=== PATIENT | male | born 1985 | race Caucasian/White ===

== ENCOUNTER 2020-11-06 00:15 | Inpatient (IN) | payer OTHER ==
--- NOTE | 2020-11-06 00:42 | ED ---
General Adult HPI - General Chief complaint: Psychiatric Symptoms Stated complaint: ETOH Time Seen by Provider: 11/06/20 00:35 Source: patient Mode of arrival: wheelchair Limitations: no limitations - History of Present Illness Initial comments: 's patient is a 35-year-old man who comes to the hospital with his mother to have evaluation after he had a number of seizures today. They report that he is a daily drinker. He was having falls recently and difficulty with walking, as well as paresthesias, so they tried to wean him from alcohol and he stopped drinking a between 24-48 hours ago. Over the course the past day he has had 4 seizures, consisting of loss consciousness and generalized tonic-clonic movements. The patient denies any injury related to seizure but he has had falls at home and has hit his head. He is denying pains currently. He is denying any focal neurologic symptoms but notes that he has had paresthesias to the bilateral arms and legs. Onset/Timin -: days(s) Severity scale (1-10): 0 Consistency: constant Improves with: none Worsens with: none Associated Symptoms: seizure, other (Paresthesias) Treatments Prior to Arrival: none - Related Data Allergies Allergy/AdvReac Type Severity Reaction Status Date / Time No Known Allergies Allergy Verified 11/06/20 00:22 Review of Systems ROS Statement: Those systems with pertinent positive or pertinent negative responses have been documented in the HPI. ROS Other: All systems not noted in ROS Statement are negative. Constitutional: Denies: fever, chills Eyes: Denies: vision change Respiratory: Denies: cough, dyspnea Cardiovascular: Denies: chest pain, palpitations, edema Gastrointestinal: Reports: vomiting. Denies: abdominal pain, nausea, diarrhea Genitourinary: Denies: dysuria, hematuria Musculoskeletal: Denies: back pain Skin: Denies: rash, lesions Neurological: Reports: numbness, confusion. Denies: headache, weakness Psychiatric: Reports: anxiety, auditory hallucinations, visual hallucinations. Denies: homicidal thoughts, suicidal thoughts Past Medical History Past Medical History: No Reported History History of Any Multi-Drug Resistant Organisms: None Reported Past Surgical History: Orthopedic Surgery Past Psychological History: Anxiety, Bipolar, Depression, Schizoaffective Disorder Smoking Status: Current every day smoker Past Alcohol Use History: Abuse, Daily, Heavy Past Drug Use History: Cocaine General Exam Limitations: no limitations General appearance: alert, in no apparent distress Head exam: Present: atraumatic, normocephalic Eye exam: Present: normal appearance. Absent: scleral icterus, conjunctival injection ENT exam: Present: normal oropharynx Neck exam: Present: normal inspection, full ROM Respiratory exam: Present: normal lung sounds bilaterally. Absent: respiratory distress, wheezes, rales, rhonchi, stridor Cardiovascular Exam: Present: regular rate, normal rhythm, normal heart sounds. Absent: systolic murmur, diastolic murmur, rubs, gallop GI/Abdominal exam: Present: soft. Absent: distended, tenderness, guarding, jason ound, rigid, pulsatile mass Extremities exam: Present: normal inspection, normal capillary refill. Absent: pedal edema, calf tenderness Back exam: Present: normal inspection, full ROM. Absent: CVA tenderness (R), CVA tenderness (L), vertebral tenderness Neurological exam: Present: alert, CN II-XII intact. Absent: oriented X3 (Patient is disoriented to date), motor sensory deficit Psychiatric exam: Present: other (Patient does appear to be responding to internal stimuli, and manifesting visual hallucinations). Absent: depressed, homicidal ideation, suicidal ideation Skin exam: Present: warm, dry, intact, normal color. Absent: rash Course Vital Signs 11/06/20 11/06/20 00:16 02:25 Temperature 98.8 F Pulse Rate 135 H 110 H Respiratory 16 16 Rate Blood Pressure 128/89 129/93 O2 Sat by Pulse 100 Oximetry EKG Findings - EKG Results: EKG: interpreted by ERMD, sinus rhythm, normal axis, normal QRS, normal ST/T EKG shows: tachycardia (Rate 117 bpm) Medical Decision Making - Lab Data Result diagrams: 11/06/20 00:59 11/06/20 00:59 Lab Results 11/06/20 11/06/20 Range/Units 00:59 00:59 WBC 7.8 (3.8-10.6) k/uL RBC 4.05 L (4.30-5.90) m/uL Hgb 13.3 (13.0-17.5) gm/dL Hct 40.0 (39.0-53.0) % MCV 98.8 (80.0-100.0) fL MCH 32.7 (25.0-35.0) pg MCHC 33.1 (31.0-37.0) g/dL RDW 16.4 H (11.5-15.5) % Plt Count 113 L (150-450) k/uL MPV 9.2 Neutrophils % 80 % Lymphocytes % 11 % Monocytes % 5 % Eosinophils % 3 % Basophils % 0 % Neutrophils # 6.2 (1.3-7.7) k/uL Lymphocytes # 0.8 L (1.0-4.8) k/uL Monocytes # 0.4 (0-1.0) k/uL Eosinophils # 0.2 (0-0.7) k/uL Basophils # 0.0 (0-0.2) k/uL Anisocytosis Slight Macrocytosis Slight Sodium 132 L (137-145) mmol/L Potassium 3.6 (3.5-5.1) mmol/L Chloride 97 L (98-107) mmol/L Carbon Dioxide 23 (22-30) mmol/L Anion Gap 12 mmol/L BUN 8 L (9-20) mg/dL Creatinine 0.69 (0.66-1.25) mg/dL Est GFR (CKD-EPI)AfAm >90 (>60 ml/min/1.73 sqM) Est GFR (CKD-EPI)NonAf >90 (>60 ml/min/1.73 sqM) Glucose 111 H (74-99) mg/dL Calcium 9.3 (8.4-10.2) mg/dL Total Bilirubin 1.3 (0.2-1.3) mg/dL AST 417 H (17-59) U/L ALT 114 H (4-49) U/L Alkaline Phosphatase 73 (38-126) U/L Total Protein 8.0 (6.3-8.2) g/dL Albumin 4.6 (3.5-5.0) g/dL Serum Alcohol <10 mg/dL Disposition Clinical Impression: Alcohol withdrawal delirium Disposition: ADMITTED IP TO THIS HOSP Condition: Serious Is patient prescribed a controlled substance at d/c from ED?: No Referrals: None,Stated [Primary Care Provider] - 1-2 days
[2020-11-06] MEDS ORDERED: SODIUM CHLORIDE 0.9% 500 ML 500 ML IV STA (00:49)
[2020-11-06] MEDS ORDERED: LORazepam 2 MG/ML INJ IV STA (00:53)
[2020-11-06 01:04] LABS: Anisocytosis Slight; Basophils % (A) 0 %; Eosinophils # (A) 0.2 k/uL (0-0.7); Eosinophils % (A) 3 %; HGB 13.3 gm/dL (13.0-17.5); Lymphocytes # (A) 0.8 k/uL (1.0-4.8); Lymphocytes % (A) 11 %; MCH 32.7 pg (25.0-35.0); MCHC 33.1 g/dL (31.0-37.0); MCV 98.8 fL (80.0-100.0); Macrocytosis Slight; Mean Platelet Volume 9.2; Monocytes # (A) 0.4 k/uL (0-1.0); Monocytes % (A) 5 %; Neutrophils # (A) 6.2 k/uL (1.3-7.7); Neutrophils % (A) 80 %; Platelet Count 113 k/uL (150-450); RBC 4.05 m/uL (4.30-5.90); RDW 16.4 % (11.5-15.5); WBC 7.8 k/uL (3.8-10.6)
[2020-11-06 01:15] LABS: ALT 114 U/L (4-49); AST 417 U/L (17-59); African American GFR (CKD) >90 (>60 ml/min/1.73 sqM); Albumin 4.6 g/dL (3.5-5.0); Alcohol <10 mg/dL; Alkaline Phosphatase 73 U/L (38-126); Anion Gap 12 mmol/L; Blood Urea Nitrogen 8 mg/dL (9-20); Calcium 9.3 mg/dL (8.4-10.2); Carbon Dioxide 23 mmol/L (22-30); Chloride 97 mmol/L (98-107); Glucose 111 mg/dL (74-99); Non-African American GFR(CKD) >90 (>60 ml/min/1.73 sqM); Potassium 3.6 mmol/L (3.5-5.1); Sodium 132 mmol/L (137-145); Total Bilirubin 1.3 mg/dL (0.2-1.3)
[2020-11-06] MEDS ORDERED: LORazepam 2 MG/ML INJ IV PRN (01:21)
--- NOTE | 2020-11-06 01:47 | CT ---
EXAM: CT Head Without Intravenous Contrast CLINICAL HISTORY: Seizure activity. TECHNIQUE: Axial computed tomography images of the head/brain without intravenous contrast. CTDI is 49.27 mGy and DLP is 1202.4 mGy-cm. This CT exam was performed using one or more of the following dose reduction techniques: automated exposure control, adjustment of the mA and/or kV according to patient size, and/or use of iterative reconstruction technique. COMPARISON: No relevant prior studies available. FINDINGS: Brain: Unremarkable. No acute intracranial hemorrhage, edema or abnormal mass-effect. Ventricles: Unremarkable. No ventriculomegaly. Bones/joints: Unremarkable. No acute fracture. Soft tissues: Unremarkable. Sinuses: Marked mucosal thickening with a small amount of fluid in the left maxillary sinus. Mastoid air cells: Unremarkable as visualized. No mastoid effusion. IMPRESSION: No acute or focal intracranial abnormalities.
[2020-11-06] MEDS ORDERED: LORazepam 2 MG/ML INJ IM STA ×2 (02:00→02:38)
[2020-11-06] MEDS ORDERED: NICOTINE 21MG/24HR PATCH TRANSDERM STA (02:01)
[2020-11-06] MEDS ORDERED: ONDANSETRON 4 MG/2 ML VIAL IVP PRN (03:21)
[2020-11-06] MEDS ORDERED: NALOXONE 0.4 MG/ML 1 ML VIAL IV PRN (03:21)
[2020-11-06] MEDS ORDERED: HEPARIN SODIUM,PORCINE 5,000 UNIT/ML 1 ML VIAL SQ STA (03:49)
--- NOTE | 2020-11-06 03:50 | P.HPIM ---
History of Present Illness H&P Date: 11/06/20 Patient is a 35-year-old male with a PMH of extensive EtOH abuse and EtOH withdrawal seizures was brought into the emergency room by his mother due to alcohol withdrawal with multiple seizures at home. The history is provided by the mother at the bedside since the patient was in active DTs during the interview. She notes that the patient has been drinking a fifth of vodka daily roughly for the last decade. She notes that he decided to quit cold turkey on the morning of 11/04/2020. He subsequently had 4 episodes of grand mal seizures at home yesterday. She notes that he began hallucinating and was very combative, at which time she decided to activate EMS. The patient underwent an extensive evaluation in the emergency room, with vitals upon presentation 128/89, pulse 135, SpO2 100% on room air, and temperature of 98.8. Laboratory evaluation was remarkable for a sodium of 132, chloride 97, BUN 8, creatinine 0.69, glucose 111, AST 417, ALT 114, platelet count 113, and serum alcohol less than 10. EKG revealed sinus tachycardia at [address] brain unremarkable. Review of Systems ROS unobtainable: due to mental status Past Medical History Past Medical History: No Reported History History of Any Multi-Drug Resistant Organisms: None Reported Past Surgical History: Orthopedic Surgery Past Psychological History: Anxiety, Bipolar, Depression, Schizoaffective Disorder Smoking Status: Current every day smoker Past Alcohol Use History: Abuse, Daily, Heavy Past Drug Use History: Cocaine Medications and Allergies Allergies Allergy/AdvReac Type Severity Reaction Status Date / Time No Known Allergies Allergy Verified 11/06/20 00:22 Physical Exam Vitals: Vital Signs Temp Pulse Resp BP Pulse Ox 11/06/20 02:25 110 H 16 129/93 11/06/20 00:16 98.8 F 135 H 16 128/89 100 Intake and Output 11/05/20 11/05/20 11/06/20 14:59 22:59 06:59 Other: Weight 74.843 kg General: Disheveled male, no distress, appears older than stated age, normal weight Derm: Tattoos throughout, no unusual rashes/lesions no unusual ecchymoses, warm, dry Head: atraumatic, normocephalic, symmetric Eyes: EOMI, anicteric sclera, pupils equal round reactive to light ENT: Nose and ears atraumatic Mouth: no lip lesion, mucus membranes dry Cardiovascular: Tachycardic, no murmur, positive posterior tibial pulse bilatera l, no edema, capillary refill less than 2 seconds Lungs: CTA bilateral, no rhonchi, no rales , no accessory muscle use Abdominal: soft, nontender to palpation, no guarding, no appreciable organomegaly Ext: no gross muscle atrophy, moving all extremities Neuro: Patient is somnolent, groans and open eyes to noxious stimuli, not following any commands Results CBC & Chem 7: 11/06/20 00:59 11/06/20 00:59 Labs: Abnormal Lab Results - Last 24 Hours (Table) 11/06/20 11/06/20 Range/Units 00:59 00:59 RBC 4.05 L (4.30-5.90) m/uL RDW 16.4 H (11.5-15.5) % Plt Count 113 L (150-450) k/uL Lymphocytes # 0.8 L (1.0-4.8) k/uL Sodium 132 L (137-145) mmol/L Chloride 97 L (98-107) mmol/L BUN 8 L (9-20) mg/dL Glucose 111 H (74-99) mg/dL AST 417 H (17-59) U/L ALT 114 H (4-49) U/L Assessment and Plan Plan: Delirium tremens -CIWA protocol -Aspiration, fall, seizure precautions -Thiamine, folate, multivitamin -Monitor electrolytes and replace them as needed -Continue with IV fluids Thrombocytopenia -Likely due to alcohol abuse -Monitor for now Abnormal LFTs -Likely due to ongoing EtOH abuse -Continue to monitor for now -Obtain coags to quantify need for glucocorticoids Hypochloremic hyponatremia -Likely due to poor oral intake -Continue with IV fluids and monitor for now DVT prophylaxis -Heparin subq The patient is admitted with an anticipated greater than 2 midnight stay for evaluation of DTs CODE STATUS: Full Code Discussed with: Patient Anticipated discharge date: 3-[address]: Home A total of 40 minutes was spent on the care of this complex patient more than 50% of the time was spent in counseling and care coordination.
[2020-11-06] MEDS: LORazepam 2 MG/ML INJ IV PRN ×6 (05:53→23:04)
[2020-11-06] MEDS: 0.9% NACL WITH KCL 20 MEQ/L 1,000 ML IV SCH ×3 (05:54→19:48)
[2020-11-06 06:08] LABS: Appearance,Urine Clear (Clear); Bilirubin,Urine Negative (Negative); Blood,Urine Negative (Negative); Color,Urine Yellow; Glucose,Urine (UA) Negative (Negative); Ketones,Urine Negative (Negative); Leukocyte Esterase,Urine Negative (Negative); Nitrite,Urine Negative (Negative); PH, Urine 6.5 (5.0-8.0); Protein,Urine 1+ (Negative); Specific Gravity,Urine 1.005 (1.001-1.035); WBC,Urine <1 /hpf (0-5)
[2020-11-06 06:17] LABS: Amphetamine Screen,Urine Not Detected (NotDetected); Barbiturate Screen,Urine Not Detected (NotDetected); Benzodiazepines Screen,Urine Detected (NotDetected); Cocaine Screen,Urine Not Detected (NotDetected); Methadone Screen, Urine Not Detected (NotDetected); Opiate Screen,Urine Not Detected (NotDetected); Oxycodone Screen, Urine Not Detected (NotDetected); Phencyclidine Screen,Urine Not Detected (NotDetected); Tricyclic Antidepressant,Urine Not Detected (NotDetected); Urn Cannabinoid Scrn Not Detected (NotDetected)
[2020-11-06] MEDS: THIAMINE 100 MG/ML 2 ML VIAL IM STA ×2 (06:59→07:03)
[2020-11-06 08:28] LABS: HCT 38.2 % (39.0-53.0); HGB 13.3 gm/dL (13.0-17.5); MCH 34.8 pg (25.0-35.0); MCHC 34.8 g/dL (31.0-37.0); MCV 99.9 fL (80.0-100.0); Macrocytosis Slight; Platelet Count 105 k/uL (150-450); RBC 3.82 m/uL (4.30-5.90); RDW 15.7 % (11.5-15.5); WBC 5.7 k/uL (3.8-10.6)
[2020-11-06 09:21] LABS: INR 1.07 (0.90-1.11); Prothrombin Time 11.5 sec (9.9-11.9)
[2020-11-06 10:20] LABS: Magnesium 1.8 mg/dL (1.5-2.4); Phosphorus 2.3 mg/dL (2.4-5.1)
[2020-11-06 13:17] LABS: African American GFR (CKD) 153.1 (60.0-200.0); Albumin 4.6 g/dL (3.80-4.90); Albumin/Globulin Ratio 1.84 (1.60-3.17); Anion Gap 14.1 mmol/L (4.00-12.00); BUN/Creat Ratio 11.67 Ratio (12.00-20.00); Carbon Dioxide 20.9 mmol/L (21.6-31.8); Globulin 2.5 g/dL (1.6-3.3); Non-African American GFR(CKD) 132.1 (60.0-200.0); Potassium 3.6 mmol/L (3.5-5.5); Total Protein 7.1 g/dL (6.2-8.2)
[2020-11-06] MEDS: THIAMINE 100 MG TAB PO SCH (16:29)
[2020-11-06] MEDS: chlordiazePOXIDE 25 MG CAP PO SCH ×2 (17:30→20:13)
[2020-11-07] MEDS: 0.9% NACL WITH KCL 20 MEQ/L 1,000 ML IV SCH ×2 (03:01→13:49)
[2020-11-07] MEDS: LORazepam 2 MG/ML INJ IV PRN ×3 (04:41→13:31)
[2020-11-07 06:55] LABS: Anisocytosis Slight; HCT 37.8 % (39.0-53.0); HGB 11.7 gm/dL (13.0-17.5); MCHC 31.1 g/dL (31.0-37.0); MCV 103.2 fL (80.0-100.0); Macrocytosis Moderate; Mean Platelet Volume 8.9; Platelet Count 123 k/uL (150-450); RBC 3.66 m/uL (4.30-5.90); RDW 16.6 % (11.5-15.5); WBC 3.4 k/uL (3.8-10.6)
[2020-11-07] MEDS: chlordiazePOXIDE 25 MG CAP PO SCH ×3 (07:46→21:56)
[2020-11-07] MEDS: THIAMINE 100 MG TAB PO SCH ×2 (07:46→17:15)
[2020-11-07 08:32] LABS: Eosinophils # (M) 0.07 k/uL (0-0.7); Lymphocytes # (M) 0.68 k/uL (1.0-4.8); Monocytes # (M) 0.27 k/uL (0-1.0); Neutrophils # (M) 2.38 k/uL (1.3-7.7); Neutrophils % (M) 70 %; Nucleated Red Blood Cells 0 /100 WBC (0-0); Total Cells Counted 100
[2020-11-07 08:33] LABS: Anisocytosis (M) Present
[2020-11-07 08:34] LABS: Poikilocytosis (M) Present
[2020-11-07] MEDS: NICOTINE 21MG/24HR PATCH TRANSDERM SCH (09:39)
--- NOTE | 2020-11-07 11:05 | P.PN ---
Subjective Progress Note Date: 11/07/20 Principal diagnosis: CC: Delirium tremens Patient this morning is AAO 1. He thinks he is in [facility]. He thinks the year is 2014. Patient however is answering questions appropriately. He states he was to go out and smoke a cigarette under supervision. Patient was told that this is against hospital policy. This gave patient IV Ativan this morning. When I walked in the room patient was somnolent. I told nurse to avoid Ativan unless if he becomes agitated. Objective - Vital Signs Vital signs: Vital Signs Temp 98.9 F 11/07/20 07:11 Pulse 83 11/07/20 07:11 Resp 18 11/07/20 07:11 BP 131/88 11/07/20 07:11 Pulse Ox 100 11/07/20 07:11 Intake & Output 11/06/20 11/07/20 11/07/20 18:59 06:59 18:59 Intake Total 200 Output Total 300 Balance -300 200 Weight 74.843 kg Intake: Oral 200 Output: Urine 300 Other: Voiding Method Urinal # Voids 1 2 # Bowel Movements 1 - Labs CBC & Chem 7: 11/07/20 05:57 11/06/20 06:01 Labs: Abnormal Lab Results - Last 24 Hours (Table) 11/06/20 11/07/20 Range/Units 06:01 05:57 WBC 3.4 L (3.8-10.6) k/uL RBC 3.66 L (4.30-5.90) m/uL Hgb 11.7 L (13.0-17.5) gm/dL Hct 37.8 L (39.0-53.0) % MCV 103.2 H (80.0-100.0) fL RDW 16.6 H (11.5-15.5) % Plt Count 123 L (150-450) k/uL Lymphocytes # (Manual) 0.68 L (1.0-4.8) k/uL Carbon Dioxide 20.9 L (21.6-31.8) mmol/L Anion Gap 14.10 H (4.00-12.00) mmol/L BUN 7.0 L (9.0-27.0) mg/dL BUN/Creatinine Ratio 11.67 L (12.00-20.00) Ratio AST 299 H (14-35) U/L ALT 119 H (10-49) U/L Assessment and Plan Assessment: Delirium tremens -CIWA protocol -Aspiration, fall, seizure precautions -Thiamine, folate, multivitamin -Monitor electrolytes and replace them as needed -Continue with IV fluids -We will start patient on Librium 25 mg 3 times a day and titrate quickly. -I discussed with the patient and so did the social media senior associate and is refusing to go to rehab at this time. We will continue to encourage patient. Thrombocytopenia -Likely due to alcohol abuse -Monitor for now Abnormal LFTs -Likely due to ongoing EtOH abuse -Continue to monitor for now -Coags are within normal limits -A.m. labs pending Hypochloremic hyponatremia -Likely due to poor oral intake -Continue with IV fluids and monitor for now DVT prophylaxis -Heparin subq The patient is admitted with an anticipated greater than 2 midnight stay for evaluation of DTs CODE STATUS: Full Code Discussed with: Patient Anticipated discharge date: 3-[address]: Home A total of 40 minutes was spent on the care of this complex patient more than 50% of the time was spent in counseling and care coordination.
[2020-11-07 11:12] LABS: Albumin 3.8 g/dL (3.80-4.90); Albumin/Globulin Ratio 1.73 (1.60-3.17); Anion Gap 7.5 mmol/L (4.00-12.00); Carbon Dioxide 22.5 mmol/L (21.6-31.8); Globulin 2.2 g/dL (1.6-3.3); Magnesium 1.8 mg/dL (1.5-2.4); Potassium 3.8 mmol/L (3.5-5.5); Total Bilirubin 0.7 mg/dL (0.2-1.2)
[2020-11-07 11:30] LABS: African American GFR (CKD) 153.1 (60.0-200.0); BUN/Creat Ratio 13.33 Ratio (12.00-20.00); Non-African American GFR(CKD) 132.1 (60.0-200.0)
[2020-11-08 08:21] LABS: Anisocytosis Slight; HCT 37.8 % (39.0-53.0); HGB 12.7 gm/dL (13.0-17.5); MCH 34.2 pg (25.0-35.0); MCHC 33.5 g/dL (31.0-37.0); MCV 101.9 fL (80.0-100.0); Macrocytosis Slight; Mean Platelet Volume 8.2; Platelet Count 172 k/uL (150-450); RBC 3.71 m/uL (4.30-5.90); RDW 16.2 % (11.5-15.5)
[2020-11-08] MEDS: THIAMINE 100 MG TAB PO SCH ×2 (08:44→16:32)
[2020-11-08] MEDS: NICOTINE 21MG/24HR PATCH TRANSDERM SCH (08:44)
[2020-11-08] MEDS: chlordiazePOXIDE 25 MG CAP PO SCH (08:44)
[2020-11-08 08:56] LABS: ALT 109 U/L (4-49); AST 169 U/L (17-59); African American GFR (CKD) >90 (>60 ml/min/1.73 sqM); Albumin/Globulin Ratio 1.3; Alkaline Phosphatase 65 U/L (38-126); Anion Gap 12 mmol/L; Blood Urea Nitrogen 6 mg/dL (9-20); Calcium 9.4 mg/dL (8.4-10.2); Carbon Dioxide 20 mmol/L (22-30); Chloride 105 mmol/L (98-107); Globulin 3.1 g/dL; Glucose 128 mg/dL (74-99); Magnesium 1.6 mg/dL (1.6-2.3); Non-African American GFR(CKD) >90 (>60 ml/min/1.73 sqM); Potassium 3.9 mmol/L (3.5-5.1); Sodium 137 mmol/L (137-145); Total Bilirubin 0.7 mg/dL (0.2-1.3); Total Protein 7.1 g/dL (6.3-8.2)
[2020-11-08 08:58] LABS: Eosinophils # (M) 0.08 k/uL (0-0.7); Lymphocytes # (M) 1.08 k/uL (1.0-4.8); Monocytes # (M) 0.28 k/uL (0-1.0); Neutrophils # (M) 2.56 k/uL (1.3-7.7); Neutrophils % (M) 64 %; Nucleated Red Blood Cells 0 /100 WBC (0-0); Total Cells Counted 100
--- NOTE | 2020-11-08 10:46 | P.PN ---
Subjective Progress Note Date: 11/08/20 Principal diagnosis: CC: Delirium tremens Patient's mentation has improved. He is not AAO 3. Patient states that he is very unsteady on his feet. He is still refusing to go to inpatient alcohol rehab. Patient still requiring IV Ativan. He states that he has some hand tremors. Objective - Vital Signs Vital signs: Vital Signs Temp 97.7 F 11/08/20 07:57 Pulse 80 11/08/20 08:51 Resp 18 11/08/20 07:57 BP 139/91 11/08/20 08:51 Pulse Ox 96 11/08/20 07:57 Intake & Output 11/07/20 11/08/20 11/08/20 18:59 06:59 18:59 Intake Total 500 Balance 500 Intake: Oral 500 Other: Voiding Method Urinal # Voids 4 2 # Bowel Movements 2 1 - Exam General examination - Alert and Oriented 3 in NAD Heart - + S1S2 no murmurs Lungs - Clear to auscultation Abdomen soft NT ND +ve BS Extremities -bilateral hand tremors PBX INSTALLER - Moving all 4 extremities spontaneously Psych - Calm and cooperative - Labs CBC & Chem 7: 11/08/20 07:47 11/08/20 07:47 Labs: Abnormal Lab Results - Last 24 Hours (Table) 11/07/20 11/08/20 11/08/20 Range/Units 05:57 07:47 07:47 RBC 3.71 L (4.30-5.90) m/uL Hgb 12.7 L (13.0-17.5) gm/dL Hct 37.8 L (39.0-53.0) % MCV 101.9 H (80.0-100.0) fL RDW 16.2 H (11.5-15.5) % Carbon Dioxide 20 L (22-30) mmol/L BUN 8.0 L 6 L (9.0-27.0) mg/dL Creatinine 0.49 L (0.66-1.25) mg/dL Glucose 128 H (74-99) mg/dL Calcium 8.0 L (8.7-10.3) mg/dL AST 197 H 169 H (14-35) U/L ALT 100 H 109 H (10-49) U/L Total Protein 6.0 L (6.2-8.2) g/dL Assessment and Plan Assessment: Delirium tremens -WA protocol -Aspiration, fall, seizure precautions -Thiamine, folate, multivitamin -Monitor electrolytes and replace them as needed -Continue with IV fluids -Titrated Librium to 10 mg 3 times a day. -I discussed with the patient and so did the social work therapist and is refusing to go to rehab at this time. We will continue to encourage patient. -Patient's mentation has improved -Consult PT OT Thrombocytopenia -Likely due to alcohol abuse -Stable Abnormal LFTs -Likely due to ongoing EtOH abuse -Continue to monitor for now -Coags are within normal limits -Improving Hypochloremic hyponatremia -Resolved DVT prophylaxis -Heparin subq CODE STATUS: Full Code Anticipated discharge date: 2-[address]: Home
--- NOTE | 2020-11-08 14:02 | P.CN ---
Psychiatric Consult - . Consult date: 11/08/20 Consult:: 11/08/20 13:42 IDENTIFYING DATA: This patient is a single, 35-year-old male who presented to the hospital with alcohol withdrawal. HISTORY OF PRESENT ILLNESS: The patient presented to the hospital on 11/06/2020 compared by his mother due to alcohol withdrawal. The patient has been drinking heavily (up to a liter everyday) and decided to stop drinking approximately 3-4 days ago. He then began experiencing significant withdrawal symptoms including tremors and seizures. Seizures consisted of loss of consciousness and generalized tonoclonic movements. His mother then decided to take him to the hospital. Along with his seizures, the patient reports that he has been having auditory and visual hallucinations. He states that he would go and try and grabs things but nothing was there. It also report that he would hear and see people in the house that weren't in the house. He also states that he was grossly disorganized and would feel like he is somewhere else but was informed by his mother that he was still at the home. He states that since coming to the hospital he has not been expressing any of the hallucinations. In regards to mood, the patient is not endorsing any suicidal or homicidal ideation, intention, and/or plan. He is not reporting any impulsivity, grandiosity, or increased goal-directed behavior. He does report to prior attempts at suicide in the past. He states that this was at least 5 years ago where he overdosed. He also reports a history of walking into traffic. He reports that he has been sleeping consistently but that his appetite tends to fluctuate depending on how much he is drinking. Outside of the substance use, the patient denies any history of psychosis. He reports no prior auditory or visual hallucinations while sober. PAST PSYCHIATRIC HISTORY: Patient has a a history of ADHD and schizoaffective disorder. He reports being trialed on Adderall and Risperdal as a child. Patient denies any previous psychiatric hospitalizations. Patient reports following up with an outpatient psychiatrist when he was very young. He does report a history of suicide attempts in the past. PAST MEDICAL HISTORY: No reported medical history ALLERGIES: NO KNOWN DRUG ALLERGIES CHEMICAL DEPENDENCY HISTORY: The patient does endorse a significant history of substance abuse. The patient currently smokes 2 packs per day of tobacco. He drinks up to 1 L of liquor per day since the age of 14. He also reports a history of experimenting on every single kind of drug and he occasionally engages in hallucinogenic drugs such as shrooms, psilocybin, and mescaline. FAMILY PSYCHIATRIC/SUBSTANCE USE HISTORY: Patient reports a family history of alcohol abuse by his maternal grandparents. He reports that his mother is diagnosed with depression and has attempted suicide as a teenager. SOCIAL HISTORY: Patient was born and raised in [place] but has been living in [place] for the last 7 years. He is currently staying with his mother as he came back for the holidays. 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 He has his GED. He does have a history of legal problems but none currently. He has no service. He states that he has 2 sisters and 5 brothers. MENTAL STATUS EXAM: General Appearance: Patient appears to be stated age is alert, pleasant, and cooperative. Patient appears to have fair hygiene and grooming wearing hospital gown with fair eye contact. Patient has multiple tattoos including all over his face. He has dreadlocks and long brown hair. Behavior: Patient is calmly lying in bed without any agitated behavior. Speech: Patient's speech is fluent and nonpressured. Mood/Affect: Patient reports their mood is "feeling better", affect is congruent, nonchalant, euthymic. Suicidality/Homicidality: Patient denies having any suicidal or homicidal ideation intent or plan. Perceptions: Patient currently denies any visual hallucinations and denies any auditory hallucinations Though content/process: There is no evidence of any delusional thought content and thought process is linear and goal-directed. Memory and concentration: AOX3, grossly intact for the purposes of this session. Can spell "WORLD" backwards Judgment and insight: Fair IMPRESSIONS: Acute alcohol withdrawal with delirium tremens Alcohol abuse Nicotine dependence Polysubstance abuse History of schizoaffective disorder PLAN: -At this time patient DOES NOT meet criteria for inpatient psychiatric admission. -Patient DOES have decision making capacity at this time and is able to reason through and communicate/appreciate the risks, benefits and alternatives to treatment. -Would recommend the following medication changes/additions: We will not make any medication changes at this time. Agree with treatment for alcohol withdrawal through [facility] protocol. The patient does not want to start any antipsychotic medication for any hallucinations at this time. He is not currently experiencing any hallucinations or paranoia or delusions. -Recommend outpatient psychotherapy for substance abuse. -Psychiatry will sign off at this point, please contact with any questions.
[2020-11-09] MEDS: THIAMINE 100 MG TAB PO SCH ×2 (07:39→17:56)
[2020-11-09 07:40] LABS: Anisocytosis Slight; HCT 41.2 % (39.0-53.0); HGB 13.5 gm/dL (13.0-17.5); MCH 33.6 pg (25.0-35.0); MCHC 32.8 g/dL (31.0-37.0); MCV 102.4 fL (80.0-100.0); Macrocytosis Moderate; Mean Platelet Volume 8.3; Platelet Count 238 k/uL (150-450); RBC 4.03 m/uL (4.30-5.90); RDW 16.7 % (11.5-15.5); WBC 5.3 k/uL (3.8-10.6)
[2020-11-09] MEDS: NICOTINE 21MG/24HR PATCH TRANSDERM SCH (07:40)
[2020-11-09 11:11] LABS: African American GFR (CKD) 153.1 (60.0-200.0); Albumin 4.6 g/dL (3.80-4.90); Albumin/Globulin Ratio 1.84 (1.60-3.17); Anion Gap 11.2 mmol/L (4.00-12.00); Calcium 9.8 mg/dL (8.7-10.3); Carbon Dioxide 21.8 mmol/L (21.6-31.8); Globulin 2.5 g/dL (1.6-3.3); Non-African American GFR(CKD) 132.1 (60.0-200.0); Potassium 4.2 mmol/L (3.5-5.5); Total Bilirubin 0.5 mg/dL (0.2-1.2); Total Protein 7.1 g/dL (6.2-8.2)
--- NOTE | 2020-11-09 12:00 | P.PN ---
Subjective Principal diagnosis: CC: Delirium tremens Patient says that he still feels very unsteady on his feet. Patient seen by physical therapy who recommended home with walker. Patient is denying any hallucinations. He denies any alcohol withdrawal symptoms. Patient has not required any Ativan in the past 24 hours. I have decreased his Librium to 10 mg twice a day. Objective - Vital Signs Vital signs: Vital Signs Temp 98.6 F 11/09/20 07:41 Pulse 69 11/09/20 07:41 Resp 17 11/09/20 07:41 BP 149/89 11/09/20 07:41 Pulse Ox 99 11/09/20 07:41 Intake & Output 11/08/20 11/09/20 11/09/20 18:59 06:59 18:59 Intake Total 540 500 Output Total 300 Balance 540 200 Intake: Oral 540 500 Output: Urine 300 Other: Voiding Method Urinal Urinal # Voids 3 4 # Bowel Movements 1 - Exam General examination - Alert and Oriented 3 in NAD Heart - + S1S2 no murmurs Lungs - Clear to auscultation Abdomen soft NT ND +ve BS Extremities -bilateral hand tremors FISCAL MANAGER - Moving all 4 extremities spontaneously Psych - Calm and cooperative - Labs CBC & Chem 7: 11/09/20 07:01 11/09/20 07:01 Labs: Abnormal Lab Results - Last 24 Hours (Table) 11/09/20 11/09/20 Range/Units 07:01 07:01 RBC 4.03 L (4.30-5.90) m/uL MCV 102.4 H (80.0-100.0) fL RDW 16.7 H (11.5-15.5) % AST 113 H (14-35) U/L ALT 106 H (10-49) U/L Assessment and Plan Assessment: Delirium tremens -[facility] protocol -Aspiration, fall, seizure precautions -Thiamine, folate, multivitamin -Monitor electrolytes and replace them as needed -Continue with IV fluids -Decreased Librium to 10 mg 2 times a day -I discussed with the patient and so did the social media senior associate and is refusing to go to rehab at this time. We will continue to encourage patient. -Patient's mentation has improved -Consult PT OT Thrombocytopenia -Likely due to alcohol abuse -Stable Abnormal LFTs -Likely due to ongoing EtOH abuse -Continue to monitor for now -Coags are within normal limits -Improving Hypochloremic hyponatremia -Resolved DVT prophylaxis -Heparin subq CODE STATUS: Full Code Anticipated discharge date: In the next 24-[address]: Home with a walker
[2020-11-09] MEDS: IBUPROFEN 400 MG TAB PO PRN (20:46)
[2020-11-10] MEDS: THIAMINE 100 MG TAB PO SCH (07:17)
[2020-11-10] MEDS: IBUPROFEN 400 MG TAB PO PRN (07:17)
[2020-11-10] MEDS: NICOTINE 21MG/24HR PATCH TRANSDERM SCH (07:17)
[2020-11-10 08:32] VITALS: RESP 18
--- NOTE | 2020-11-10 13:10 | P.DS ---
Providers Date of admission: 11/06/20 03:21 Expected date of discharge: 11/10/20 Attending physician: Fredy Arthur MD Consults: 11/07/20 14:17 Consult Physician Urgent Consulting Provider: Yemi Guerra Consult Reason/Comments: Hallucinations, alcohol abuse Do you want consulting provider notified?: Yes Primary care physician: Stated None Hospital Course: Discharge Diagnosis: Delirium tremens Thrombocytopenia: Stable Abnormal LFTs: Improving Hypochromic hyponatremia: Resolved Hospital Course: Patient is a 35-year-old male with significant past medical history of alcohol abuse who presented to the ED with delirium tremens. Patient had quit drinking a couple of days prior to coming in. At home patient was having hallucinations and seizures. During hospital course patient was weaned off of the benzodiazepine. His delirium tremens and alcohol withdrawal symptoms had resolved. At the time of discharge patient was AAO 3. Patient at the time of discharge states that throughout his life he goes through phases where he stops drinking and then starts drinking up again. Patient states that he would likely start drinking again after discharge. He refuses to go to inpatient rehab. At the time of discharge patient did have an unsteady gait likely due to his chronic alcohol use. Patient was provided with a walker at the time of discharge. General examination - Alert and Oriented 3 in NAD Heart - + S1S2 no murmurs Lungs - Clear to auscultation Abdomen soft NT ND +ve BS Extremities - No edema OPEN DIE INSPECTOR - Moving all 4 extremities spontaneously Psych - Calm and cooperative A total of 32 minutes of time were spent preparing this complex discharge summary . Patient Condition at Discharge: Serious Plan - Discharge Summary Discharge Rx Participant: No New Discharge Prescriptions: Discontinued ALPRAZolam [Xanax] 0.5 mg PO ONCE Follow up Appointment(s)/Referral(s): None,Stated [Primary Care Provider] - 1-2 days Discharge Disposition: HOME SELF-CARE
[2020-11-10 15:15] VITALS: BP 122/81; PULSE 68; TEMP 98.9
== END 2020-11-10 15:45 | disposition home or self-care (01) | DRG 897 ==
LOC: EC 00:15 → MERGE 03:21 → 4SSUR 03:21 → EDBD 03:21 → 4SSUR 15:07
PROVIDERS: ADMIT Internal Medicine; ATTEND Internal Medicine
DX: F10.231 Alcohol dependence with withdrawal delirium (principal); E87.1 Hypo-osmolality and hyponatremia; F17.210 Nicotine dependence, cigarettes, uncomplicated; F25.9 Schizoaffective disorder, unspecified; F41.9 Anxiety disorder, unspecified; D69.6 Thrombocytopenia, unspecified; E87.8 Other disorders of electrolyte and fluid balance, not elsewhere classified; G40.409 Other generalized epilepsy and epileptic syndromes, not intractable, without status epilepticus; Z91.81 History of falling; F19.10 Other psychoactive substance abuse, uncomplicated; R26.2 Difficulty in walking, not elsewhere classified; F14.11 Cocaine abuse, in remission; R94.5 Abnormal results of liver function studies
CPT/HCPCS: 36415; 70450; 80053; 80306; 80320; 81001; 83735; 84100; 85025; 85027; 85610; 93005; 96365; 96366; 96372; 96375; 96376; 99285